=== PATIENT | female | born 1960 | race African-American/Black ===

== ENCOUNTER → 2016-03-14 | Outpatient (CLI) | payer OTHER ==
--- NOTE | 2016-03-14 16:09 | WOMENS IMAGING REPORT ---
EXAM DESCRIPTION: BILAT SCREENING MAMMO W/CAD COMPLETED DATE/TIME: 03/14/2016 10:22 am REASON FOR STUDY: Z12.31, ROUTINE SCREENING MAMMO Z12.31 ENCNTR SCREEN MAMMOGRAM FOR MALIGNANT NEOP LASM OF NAE COMPARISON: 2008 to 2014 TECHNIQUE: Standard craniocaudal and mediolateral oblique views of each breast recorded using ServiceMax[employer] l acquisition. LIMITATIONS: None. FINDINGS: No masses, calcifications or architectural distortion. No areas of suspicion. Read with the assistance of CAD. .[facility] - R2 Cenova Version 1.3 .[facility] Imaging - R2 Cenova Version 1.3 .[facility] Imaging - R2 Cenova Version 2.4 .[facility] [place] - R2 Cenova Version 2.4 .[facility] - R2 Glass Laminating Operator Version 9.2 BREAST DENSITY: c. The breasts are heterogeneously dense, which may obscure small masses. BIRAD: 1 NEGATIVE RECOMMENDATION: ROUTINE SCREENING COMMENT: PATIENT NOTIFIED BY LETTER. The [employer] recommends an annual screening mammogram for women aged 40 years or over. Each patient will receive a reminder prior to the anniversary date of her mammogram. The [employer] (ACR) has developed recommendations for screening MRI of the breast s in certain patient populations, to be used in conjunction with mammography. Breast MRI surveillanc e may be appropriate for women with more than 20% lifetime risk of developing breast cancer as deter mined by genetic testing, significant family history of the disease, or history of mantle radiation f or Hodgkins Disease. ACR Practice Guidelines 2008. TECHNICAL DOCUMENTATION: FINDING NUMBER: (1) ASSESSMENT: (1) JOB ID: [id number] [employer]- All Rights Reserved
== END ==
LOC: WI 09:57
PROVIDERS: ATTEND Nurse Practitioner Primary Care
DX: Z12.31 Encounter for screening mammogram for malignant neoplasm of breast (principal)
CPT/HCPCS: 77067; G0202

== ENCOUNTER 2016-06-22 10:26 | Day surgery (SDC) | payer OTHER ==
--- NOTE | 2016-06-20 11:20 | HISTORY AND PHYSICAL E ---
History and Physical NAME: ONOFRE BLUNT : 1960 AGE: 56Y ADMITTED: 06/22/2016 ROOM: REFERRING PHYSICIAN: Dr. Banegas HISTORY OF PRESENT ILLNESS: A 56-year-old female presented for colon screening. SOCIAL HISTORY: . PAST SURGICAL HISTORY: 1. She did have right hemicolectomy, Dr. Cerrato. 2. . REVIEW OF SYSTEMS: CARDIAC: Negative. ENDOCRINE: Negative. RESPIRATORY: Negative. GASTROINTESTINAL: Colon screening. ONCOLOGY/HEMATOLOGY: Negative. NEUROLOGIC: Negative. MUSCULOSKELETAL: Arthritis. FAMILY HISTORY: Father had CA of the kidney. Mom is alive. PHYSICAL EXAMINATION: GENERAL: Pleasant. VITAL SIGNS: Blood pressure 140/85, pulse 80, respirations 18, temp is 98. HEAD, EYES, EARS, NOSE, THROAT: Normal. ABDOMEN: Soft. NEUROLOGIC: Negative. CONCLUSION: Colon screening. PLAN: Colonoscopy. DICTATING PHYSICIAN: RANDY KIRK M.D. 1211M [id number] PHY#: [id number] ID: [id number] JOB#: [id number] ACCT: [id number] cc:RANDY KIRK M.D., ROBERT E. M.D. >
--- NOTE | 2016-06-20 11:22 | HISTORY AND PHYSICAL E ---
History and Physical NAME: ONOFRE BLUNT : 1960 AGE: 56Y ADMITTED: 06/22/2016 ROOM: Patient presented for colon screening. HISTORY OF PRESENT ILLNESS: Patient known to me since year 2000. She was status post hysterectomy. The patient has most likely postoperative hematoma or an abscess. Patient did have a hysterectomy. Patient did have a colon exam. REVIEW OF SYSTEMS: She did have complete hysterectomy. She does not smoke. She does not drink. Patient did have history of sessile polyp in the right colon. She did have right hemicolectomy secondary to sessile polyp 2001. Her exam shows right colon resection and anastomosis, patent. No evidence of polyps. Patient did have another colonoscopy in 2006 showing no polyps. Patient presented at this time for further evaluation. She did have colonoscopy in 2009. She did have x2, hysterectomy, right hemicolectomy. ALLERGIES: PERCOCET. In 2009, she underwent colon exam. No polyps. The patient has no recurrence. She does have liver cyst. At this time, patient for followup colon, regarding history of right hemicolectomy secondary to sessile polyp. MEDICATIONS: 1. Vitamins. 2. Tylenol. 3. Zyrtec. CONCLUSION: 1. Colon screening. 2. History of polyps. DICTATING PHYSICIAN: RANDY KIRK M.D. 1211M 1623 PHY#: [id number] ID: [id number] JOB#: [id number] ACCT: [id number] cc:RANDY KIRK M.D., ROBERT E. M.D. >
--- NOTE | 2016-06-20 11:22 | HISTORY AND PHYSICAL E ---
History and Physical NAME: ONOFRE BLUNT : 1960 AGE: 56Y ADMITTED: 06/22/2016 ROOM: CHIEF COMPLAINT: Patient for colon screening. SOCIAL HISTORY: Patient is . PAST SURGICAL HISTORY: Patient did have a right hemicolectomy secondary to sessile polyps, 2010. REVIEW OF SYSTEMS: CARDIAC: Negative. RESPIRATORY: Negative. FAMILY HISTORY: Father had malignancy, kidney cancer. Her mom is alive. PHYSICAL EXAMINATION: VITAL SIGNS: Blood pressure 140/90. HEAD, EYES, EARS, NOSE, THROAT: Normal. ABDOMEN: Soft. LUNGS: Clear. NEUROLOGIC: Negative. CONCLUSION: Colon screening. DICTATING PHYSICIAN: RANDY KIRK M.D. [id number] 1602 PHY#: [id number] ID: [id number] JOB#: [id number] ACCT: [id number] cc:RANDY KIRK M.D. >
[~2016-06-22 10:26] MED LIST: EPINEPHRINE INJ 1 MG/10 ML DISP.SYRIN ONE; FLUMAZENIL INJ 0.5 MG/5 ML VIAL IV ONE; GLUCAGON,HUMAN RECOMB 1 MG INJ ONE; LIDOCAINE 2% JELLY 30 ML TUBE ONE; NALOXONE HCL INJ/PF 0.4 MG/1 ML SDV ONE
[2016-06-22] MEDS: ONDANSETRON HCL INJ/PF 4 MG/2 ML SDV ONE ×2 (10:40→10:43)
[2016-06-22] MEDS: GLYCOPYRROLATE INJ 0.4 MG/2 ML VIAL ONE ×2 (10:42→10:45)
[2016-06-22] MEDS: MIDAZOLAM 2 MG/2 ML INJ ONE ×4 (10:44→11:01)
[2016-06-22] MEDS: FENTANYL CITRATE INJ/PF 100 MCG/2 ML AMPUL ONE ×4 (10:46→11:04)
--- NOTE | 2016-06-22 12:15 | DISCHARGE SUMMARY E ---
Discharge Summary NAME: ONOFRE BLUNT : 1960 AGE: 56Y ADMITTED: 06/22/2016 DISCHARGED: 06/22/2016 HISTORY: This 56-year-old female presented for colon screening. She does have history of right colon resection. Today's colonoscopy shows no evidence of polyps or malignancy. DISCHARGE PLAN: 1. Soft diet today. 2. Resume all medication. 3. Consideration for follow-up colonoscopy in 5 years. FINAL DIAGNOSIS: Colon screening shows no polyps and no malignancy. DICTATING PHYSICIAN: RANDY KIRK M.D. 1209M 1143 PHY#: [id number] ID: [id number] JOB#: [id number] ACCT: [id number] cc:RANDY KIRK M.D., ROBERT E. M.D. >
--- NOTE | 2016-06-22 12:16 | OPERATIVE REPORT E ---
Operative Report NAME: ONOFRE BLUNT : 1960 AGE: 56Y DATE OF SURGERY: 06/22/2016 ROOM: PREOPERATIVE DIAGNOSIS: Colon screening. POSTOPERATIVE DIAGNOSIS: No polyps. PROCEDURE: Colonoscopy to the anastomosis. SURGEON: RANDY KIRK M.D. ANESTHESIA: Versed 3 and fentanyl 150. TISSUE REMOVED OR ALTERED: None. PROCEDURE: Rectal exam normal. Sigmoid descending normal. Transverse colon normal. Ascending colon and cecum resected. Anastomosis patent. Scope withdrawn from anastomosis. Transverse colon normal. Sigmoid descending colon normal. Rectosigmoid normal. CONCLUSION: No polyps. No malignancy. RECOMMENDATIONS: Followup colonoscopy 5 years. DICTATING PHYSICIAN: RANDY KIRK M.D. 1211M 1141 PHY#: [id number] ID: [id number] JOB#: [id number] ACCT: [id number] cc:RANDY KIRK M.D., ROBERT E. M.D. >
[2016-06-22 12:44] VITALS: BP 114/62
== END 2016-06-22 12:30 | disposition home or self-care (01) ==
LOC: END 10:26
PROVIDERS: ATTEND Specialist
PROC: 0DJD8ZZ Inspection of Lower Intestinal Tract, Via Natural or Artificial Opening Endoscopic (ICD-10-PCS; principal; 2016-06-22 11:00)
DX: Z12.11 Encounter for screening for malignant neoplasm of colon (principal); M19.90 Unspecified osteoarthritis, unspecified site; Z79.899 Other long term (current) drug therapy; Z90.49 Acquired absence of other specified parts of digestive tract
CPT/HCPCS: 45378; J2250; J3010; J1610; J2405; J0171; J2310; J3490

== ENCOUNTER → 2017-05-13 | Outpatient (CLI) | payer OTHER ==
--- NOTE | 2017-05-13 09:15 | WOMENS IMAGING REPORT ---
EXAM DESCRIPTION: 3D SCREENING MAMMO BILAT COMPLETED DATE/TIME: 05/13/2017 7:42 am REASON FOR STUDY: SCREENING MAMMO Z12.31 ENCNTR SCREEN MAMMOGRAM FOR MALIGNANT NEOPLASM OF NAE COMPARISON: Multiple since 2008 TECHNIQUE: Standard craniocaudal and mediolateral oblique views of each breast recorded using digita l acquisition and breast tomosynthesis. LIMITATIONS: None. FINDINGS: Findings present which are benign by mammographic criteria. No suspicious masses, calcifi cations or architectural distortion. Pertinent benign findings: Stable benign bilateral breast calcifications Read with the assistance of CAD. .[facility] - R2 Cenova Version 1.3 .[facility] Imaging - R2 Cenova Version 1.3 .[facility] Imaging - R2 Cenova Version 2.4 .[facility] [place] - R2 Cenova Version 2.4 .[facility] - R2 Tv Host Version 9.2 Benign mammographic findings may include one or more of the following: Smooth masses, popcorn/rim/co arse calcifications, asymmetries, post-procedure changes, and lesions with long-standing stability. IMPRESSION: BENIGN MAMMOGRAPHIC FINDINGS. BIRADS 2 BREAST DENSITY: c. The breasts are heterogeneously dense, which may obscure small masses. BIRAD: 2 BENIGN FINDING(S) RECOMMENDATION: RECOMMENDATION: ROUTINE SCREENING Please continue yearly bilateral screening tomosynthesis in May 2018 COMMENT: The patient has been notified of the results by letter per [place] requirements. Additional no tification policies are in place for contacting patient with suspicious or incomplete findings. Quality ID #[id number]: The [employer] recommends an annual screening mammogram for women aged 40 years or over. This facility utilizes a reminder system to ensure that all patients receive reminder letters, and/or direct phone calls for appointments. This includes reminders for routine scr eening mammograms, diagnostic mammograms, or other Breast Imaging Interventions when appropriate. Th is patient will be placed in the appropriate reminder system. The [employer] (ACR) has developed recommendations for screening MRI of the breast s in certain patient populations, to be used in conjunction with mammography. Breast MRI surveillanc e may be appropriate for women with more than 20% lifetime risk of developing breast cancer as deter mined by genetic testing, significant family history of the disease, or history of mantle radiation f or Hodgkins Disease. ACR Practice Guidelines 2008. DBT Technology DBT is a type of tomographic mammography. With conventional mammography, overlapping breast tissue ma y make lesions difficult to detect, even with good compression. DBT uses an x-ray tube that rotates a round the breast, taking images at different angles. These images are then combined to create thin sl ices of the breast that the radiologist can view as a 3D reconstruction. The [employer] unit can perform full-field digital mammograms (2D imaging); or DBT (3D imaging); or both, in a combination mode that quickly performs both the mammogram and the tomosynthesis scan while the breast is still compressed. PQRS 6045F: Fluoroscopic imaging is not utilized for breast tomosynthesis. TECHNICAL DOCUMENTATION: FINDING NUMBER: (1) ASSESSMENT: (1) JOB ID: [id number] [employer]- All Rights Reserved Reading location - IP/workstation name: [email or web address]
== END ==
LOC: WI 07:21
PROVIDERS: ATTEND Nurse Practitioner Primary Care
DX: Z12.31 Encounter for screening mammogram for malignant neoplasm of breast (principal)
CPT/HCPCS: 77063; 77067

== ENCOUNTER → 2017-10-16 | Outpatient (CLI) | payer OTHER ==
--- NOTE | 2017-10-16 12:11 | RADIOLOGY REPORT (SQ) ---
EXAM DESCRIPTION: HAND BILATERAL 3 VIEWS COMPLETED DATE/TIME: 10/16/2017 11:19 am REASON FOR STUDY: ARTHRITIS IN FINGERS COMPARISON: None. NUMBER OF VIEWS: Three views right hand. Three views left hand. LIMITATIONS: None. FINDINGS: Right: No aggressive erosions. No soft tissue swelling. No fracture or bone lesion. Re latively maintained joint spaces throughout without bulky osteophytes. Small subchondral cysts are l ikely at some of the IP joints. Left: No aggressive erosions. No soft tissue swelling. No fracture or bone lesion. Relatively erin ntained joint spaces throughout without bulky osteophytes. Small subchondral cysts are likely at laura e of the IP joints. OTHER: No other significant finding. IMPRESSION: Minimal osteoarthritic changes in the IP joints. TECHNICAL DOCUMENTATION: JOB ID: [id number] Reading location - IP/workstation name: [email or web address]
[2017-10-16 12:37] LABS: CREATINE KINASE MB 1.25 ng/mL (<4.55); NT PRO BNP 72 pg/mL (5-900)
[2017-10-16 12:42] LABS: TROPONIN I < 0.012 ng/mL
--- NOTE | 2017-10-16 13:57 | EKG REPORT ---
SEVERITY:- NORMAL ECG - SINUS RHYTHM : Confirmed by: Kendrick Espino MD 16-Oct-2017 13:57:32
== END ==
LOC: OD 10:44
PROVIDERS: ATTEND Obstetrics & Gynecology
DX: M19.042 Primary osteoarthritis, left hand (principal); M19.041 Primary osteoarthritis, right hand; R94.39 Abnormal result of other cardiovascular function study
CPT/HCPCS: 36415; 82553; 83880; 84484; 93005; 93010

== ENCOUNTER → 2020-01-27 | Outpatient (CLI) | payer OTHER ==
[2020-01-27 12:41] LABS: HEMATOCRIT 34.5 % (36.0-47.0); HEMOGLOBIN 11.3 g/dL (12.0-15.5); MEAN CORPUSCULAR HEMOGLOBIN 27.2 pg (27.0-33.4); MEAN CORPUSCULAR HGB CONC 32.8 g/dL (32.0-36.0); MEAN CORPUSCULAR VOLUME 83 fl (80-97); PLATELET COUNT 208 10^3/uL (150-450); RED BLOOD COUNT 4.16 10^6/uL (3.72-5.28); RED CELL DISTRIBUTION WIDTH 15.5 % (11.5-14.0); WHITE BLOOD COUNT 7.5 10^3/uL (4.0-10.5)
[2020-01-27 13:05] LABS: ALBUMIN 4.2 g/dL (3.5-5.0); ALKALINE PHOSPHATASE 111 U/L (38-126); ANION GAP 7 (5-19); ASPARTATE AMINO TRANSFERASE 26 U/L (14-36); BILIRUBIN,DIRECT 0.1 mg/dL (0.0-0.4); BILIRUBIN,TOTAL 0.5 mg/dL (0.2-1.3); BLOOD UREA NITROGEN 13 mg/dL (7-20); CALCIUM 9.7 mg/dL (8.4-10.2); CARBON DIOXIDE 29 mmol/L (22-30); CHLORIDE 103 mmol/L (98-107); CHOLESTEROL 223.96 mg/dL (0-200); GLUCOSE 85 mg/dL (75-110); TOTAL PROTEIN 8.2 g/dL (6.3-8.2); TRIGLYCERIDES 49 mg/dL (<150)
[2020-01-27 13:06] LABS: POTASSIUM 4.6 mmol/L (3.6-5.0)
[2020-01-27 13:15] LABS: DIRECT LDL 114 mg/dL (<100)
== END ==
LOC: OD 10:56
PROVIDERS: ATTEND Obstetrics & Gynecology
DX: I10 Essential (primary) hypertension (principal); E78.5 Hyperlipidemia, unspecified; R73.03 Prediabetes; Z79.899 Other long term (current) drug therapy
CPT/HCPCS: 36415; 80053; 80061; 84443; 85027

== ENCOUNTER → 2020-02-26 | Outpatient (CLI) | payer OTHER ==
--- NOTE | 2020-02-26 13:35 | WOMENS IMAGING REPORT ---
EXAM DESCRIPTION: 3D SCREENING MAMMO BILAT IMAGES COMPLETED DATE/TIME: 02/26/2020 12:52 pm REASON FOR STUDY: ROUTINE SCREENING MAMMOGRAM Z12.31 Z12.31 ENCNTR SCREEN MAMMOGRAM FOR MALIGNANT N EOPLASM OF NAE COMPARISON: 2014 and subsequent. EXAM PARAMETERS: Views: Standard craniocaudal and mediolateral oblique views of each breast recorded using digital acquisition and breast tomosynthesis. Read with the assistance of CAD. .[facility] - [employer] Version 9.2 LIMITATIONS: None. FINDINGS: No suspicious masses, suspicious calcifications or architectural distortion. No areas of c oncern. IMPRESSION: NEGATIVE MAMMOGRAM. BIRADS 1. BREAST DENSITY: c. The breasts are heterogeneously dense, which may obscure small masses. BIRAD: ASSESSMENT: 1 NEGATIVE RECOMMENDATION: ROUTINE SCREENING COMMENT: The patient has been notified of the results by letter per MQSA requirements. Additional no tification policies are in place for contacting patient with suspicious or incomplete findings. Quality ID #[id number]: The [employer] recommends an annual screening mammogram for women aged 40 years or over. This facility utilizes a reminder system to ensure that all patients receive reminder letters, and/or direct phone calls for appointments. This includes reminders for routine scr eening mammograms, diagnostic mammograms, or other Breast Imaging Interventions when appropriate. Th is patient will be placed in the appropriate reminder system. TECHNICAL DOCUMENTATION: FINDING NUMBER: (1) ASSESSMENT: (1) JOB ID: [id number] 2010 [employer]- All Rights Reserved Reading location - IP/workstation name: [email or web address]
== END ==
LOC: WI 11:28
PROVIDERS: ATTEND Obstetrics & Gynecology
DX: Z12.31 Encounter for screening mammogram for malignant neoplasm of breast (principal)
CPT/HCPCS: 77063; 77067